=== PATIENT | male | born 1970 | race Caucasian/White ===

== ENCOUNTER → 2017-01-13 | Outpatient (CLI) | payer OTHER ==
[~2017-01-13] MED LIST: IBUPROFEN200 M1 PO; NO HOME MEDICATIONS; VICODIN 5/5001 UDTAB PO
[2017-01-13 12:03] LABS: ALBUMIN 4.3 gm/dL (3.5-5.0); CALCIUM 9.5 mg/dL (8.4-10.2); CREATININE, serum 1.36 mg/dL (0.66-1.25); POTASSIUM 4.7 mmol/L (3.4-5.0)
[2017-01-13 12:16] LABS: PHOSPHOROUS 3.3 mg/dL (2.5-4.5)
[2017-01-13 14:08] LABS: URINE PROTEIN:CREAT RATIO 1.02 (0.00-0.14)
== END ==
LOC: COL.LAB 10:28
PROVIDERS: Internal Medicine Nephrology
DX: Z01.89 Encounter for other specified special examinations (principal)

== ENCOUNTER → 2017-08-02 | Outpatient (CLI) | payer OTHER ==
[2017-08-02 10:22] LABS: URINE PROTEIN:CREAT RATIO 0.49 (0.00-0.14)
[2017-08-02 10:26] LABS: ALBUMIN 4.6 gm/dL (3.5-5.0); CALCIUM 9.5 mg/dL (8.4-10.2); CREATININE, serum 1.53 mg/dL (0.66-1.25); PHOSPHOROUS 3.2 mg/dL (2.5-4.5); POTASSIUM 4.8 mmol/L (3.4-5.0)
== END ==
LOC: COL.LAB 09:08
PROVIDERS: Internal Medicine Nephrology
DX: N18.2 Chronic kidney disease, stage 2 (mild) (principal)

== ENCOUNTER → 2019-08-16 | Outpatient (CLI) | payer BC | LOC: COL.RAD 13:14 | DX: N18.2 Chronic kidney disease, stage 2 (mild) (principal); R80.8 Other proteinuria ==